=== PATIENT | female | born 1995 | race Caucasian/White ===

== ENCOUNTER 2024-08-17 16:02 | Emergency (ER) | payer OTHER, SELFPAY ==
[2024-08-17 16:07] VITALS: BP 125/79; PULSE 60; RESP 16; TEMP 36.7; O2SAT 97; BMI 27.1
--- NOTE | 2024-08-17 16:25 | XRR_ITS ---
PROCEDURE INFORMATION: Exam: XR Lumbosacral Spine Exam date and time: 08/17/2024 5:30 PM Age: 29 years old Clinical indication: Injury or trauma; Blunt trauma (contusions or hematomas); Injury details: History--1430 today fall down stairs x4 while holding her child. PT knees bent and butt took most of the force. Left hip pain running to left knee after feeling a pop. Right hip to knee hurts but is less pain. Smoking--n. Cancer (type)--n. Surgery--n. Tech--em. Verified patient//orders--y. --n. Lmp less than 4 wks ago--. Had a hysterectomy--. Use a form of contraception--. Not sexually active--. Have not had sexual activity since last menstrual period. Date of. Lmp--. Shielding--n; Additional info: Fall and pain TECHNIQUE: Imaging protocol: Radiologic exam of the lumbosacral spine. Views: 2 or 3 views. COMPARISON: CR (PELVIS, ) 08/17/2024 5:30 PM FINDINGS: Bones/joints: Normal. No acute fracture. Normal alignment. Soft tissues: Unremarkable. XR/XR lumbar spine 2-3V* [id number] IMPRESSION: No acute findings.
--- NOTE | 2024-08-17 16:25 | XRR_ITS ---
PROCEDURE INFORMATION: Exam: XR Pelvis Exam date and time: 08/17/2024 5:30 PM Age: 29 years old Clinical indication: Injury or trauma; Blunt trauma (contusions or hematomas); Bilateral; Pelvic region; Injury details: History--1430 today fall down stairs x4 while holding her child. PT knees bent and butt took most of the force. Left hip pain running to left knee after feeling a pop. Right hip to knee hurts but is less pain. ; Additional info: Fall and pain TECHNIQUE: Imaging protocol: Radiologic exam of the pelvis. Views: 1 or 2 view. COMPARISON: CR XR lumbar spine 2-3V* [id number] 08/17/2024 5:30 PM FINDINGS: Bones/joints: Unremarkable. No acute fracture. Soft tissues: Unremarkable. XR/XR pelvis 1-2V* [id number] IMPRESSION: No acute findings.
[2024-08-17 17:19] LABS: HCG Qualitative Urine. Negative (Negative)
--- NOTE | 2024-08-17 18:48 | XRR_ITS ---
PROCEDURE INFORMATION: Exam: XR Left Femur Exam date and time: 08/17/2024 7:00 PM Age: 29 years old Clinical indication: Pain; Hip and thigh; Left; Additional info: Thigh pain post fall TECHNIQUE: Imaging protocol: Radiologic exam of the left femur. Views: 2 views. COMPARISON: CR (PELVIS, ) 08/17/2024 5:30 PM FINDINGS: Bones/joints: Unremarkable. No acute fracture. Soft tissues: Unremarkable. XR/XR femur LT min 2V* [id number] IMPRESSION: No acute findings.
--- NOTE | 2024-08-17 19:40 | W.ED.FALL ---
HPI - Fall General: Chief Complaint: Fall Stated Complaint: fell, pain in both legs Time Seen by Provider: 08/17/24 18:34 History of Present Illness: 29-year-old female who fell down 4 stairs at home. She was holding her child, and tried not to injure the child. She complains mainly of left thigh pain. No numbness or tingling. She says that her sacrum does not really hurt. Her pelvis does not hurt. She is experiencing pain in the groin. Pain with bending at the hips. Pain radiates down the anterior and lateral thigh, but not past the knee. Related Data Previous Rx's ?Medication ?Instructions ?Recorded ketorolac 10 mg tablet 10 mg PO TID PRN pain #10 tabs 08/17/24 Allergies Allergy/AdvReac Type Severity Reaction Status Date / Time Sulfa (Sulfonamide Allergy ADR-Itching Verified 08/17/24 16:13 Antibiotics) [facility] Female Reproductive History: Date of last menstrual period: 08/03/24 Physical Exam Const: COMMON NORMALS: no acute distress GENERAL APPEARANCE: cooperative; not ill appearing and not frail appearing HENMT: COMMON NORMALS: normocephalic, atraumatic and Normal external nose present HEAD & SCALP: normocephalic and atraumatic FACE & SINUS: normal facial exam and face symmetric NOSE: Normal external nose present Eye: COMMON NORMALS: Equal, round and reactive pupils present and EOMs intact bilaterally PUPIL: Yes Equal, round and reactive pupils present Neck/C-Spine: GENERAL: Yes trachea midline Chest: CHEST: Yes Symmetrical chest wall rise Resp: COMMON NORMALS: normal respiratory effort, No retractions, No use of accessory muscles and clear to auscultation bilaterally AUSCULTATION: clear to auscultation bilaterally Cardio: COMMON NORMALS: regular rate and regular rhythm RATE: regular rate RHYTHM: regular rhythm GI: COMMON NORMALS: Normal to inspection, nondistended, normoactive bowel sounds present Back/Pelvis: OTHER: Examination of the lumbar spine pelvis reveals no pain on pelvic compression. She does have tenderness on palpation to the anterior left hip, and somewhat to the lateral. No posterior tenderness. No lumbar spine tenderness. There is pain with activation of her quadriceps. There is pain on active knee bending. No knee tenderness. No knee effusion. Extremity: COMMON NORMALS: no pedal edema Neuro: TARA COMA SCALE: document GCS findings [place] coma scale eye opening: Spontaneous Tara coma scale verbal response: Orientated [place] coma scale motor response: Obey commands Tara coma scale total score: 15 SENSORY EXAM: Yes extremities (intact) Psych: COMMON NORMALS: speech normal SPEECH: Yes normal speech Skin: COMMON NORMALS: no rashes or lesions noted GENERAL SKIN EXAM: no rashes or lesions noted Course Vital Signs: Vital signs: Vital Signs Temperature 98.0 F 08/17/24 16:07 Pulse Rate 62 08/17/24 20:17 Respiratory Rate 18 08/17/24 20:17 Blood Pressure 112/82 08/17/24 20:17 Pulse Oximetry 97 08/17/24 20:17 Oxygen Delivery Me thod Room Air 08/17/24 19:49 MDM - Fall Medical Decision Making X-rays of the lumbar spine and pelvis are negative. No fractures. Femur x-ray shows no fracture including no avulsion. In terms of mechanism, it sounds like she went down the stairs with her knees hyper flexed, and likely strained her proximal quadriceps, although left hip subluxation is in the differential. Crutches for weightbearing. Anti-inflammatories and ice. Close outpatient follow-up. Return for worsening symptoms. Lab Data Radiology Impressions Lumbar Spine X-Ray 08/17/24 16:25 IMPRESSION: No acute findings. Pelvis X-Ray 08/17/24 16:25 IMPRESSION: No acute findings. Femur X-Ray 08/17/24 18:48 IMPRESSION: No acute findings. Laboratory Results HCG, Qual Negative (Negative) 08/17/24 16:55 All radiology interpretation(s) finalized by discharge Discharge Plan Discharge Patient Disposition: Home Clinical Impression: Strain of left quadriceps muscle Condition: Stable Prescriptions: New ketorolac 10 mg tablet 10 mg PO TID PRN (Reason: pain) Qty: 10 0RF Discharge Orders: Discharge ED (Routine); Ordered 08/17/24 Ordered By: Triston Pagan Patient Instructions: Hip Sprain (ED), Groin Strain (ED), Opioid Safety, Pain Management Activity Restrictions/Additional Instructions: Return for problems. Ice for pain. Medication as directed. Crutch for weightbearing until you can tolerate weightbearing without. Follow-up with your doctor next week. Call for an appointment. Stand Alone Forms: Work/School Release Print Language: Uzbek Coding Level of Care Code ED [employer] for [place] [employer]
[2024-08-17 19:49] VITALS: BP 119/81; PULSE 58; RESP 16; O2SAT 99
[2024-08-17 20:17] VITALS: BP 112/82; PULSE 62; RESP 18; O2SAT 97
[2024-08-17] MEDS: oxyCODONE-APAP 5-325 mg Tablet 2 TAB PO (20:19)
== END 2024-08-17 20:29 | disposition home or self-care (01) ==
PROVIDERS: Family Medicine; Emergency Provider Emergency Medicine
DX: S76.112A Strain of left quadriceps muscle, fascia and tendon, initial encounter (principal); W10.9XXA Fall (on) (from) unspecified stairs and steps, initial encounter; M25.562 Pain in left knee; M25.552 Pain in left hip
CPT/HCPCS: 72100; 72170; 73552; 81025; 99284; J9999